=== PATIENT | male | born 1985 | race Two or more races ===

== ENCOUNTER 2024-12-06 22:13 | Emergency (ER) | payer MEDICAID ==
[~2024-12-06] VITALS: Ht 170.2 cm; Wt 68.0 kg
[2024-12-06 22:18] VITALS: O2SAT 99
[2024-12-06] MEDS: DIPHENHYDRAMINE 50MG/ML VIAL IV ONE (23:49)
[2024-12-07] MEDS: BENZTROPINE MESYLATE 1MG TABLET PO ONE (00:41)
[2024-12-07 03:31] VITALS: BP 111/60; PULSE 82; RESP 14; TEMP 36.9; O2SAT 99
== END 2024-12-07 03:39 | disposition home or self-care (01) ==
LOC: ER 22:13
DX: R68.84 Jaw pain (principal); J45.909 Unspecified asthma, uncomplicated; F20.9 Schizophrenia, unspecified; Z79.899 Other long term (current) drug therapy
CPT/HCPCS: 99285; 96374; J1200; A4606